=== PATIENT | female | born 1940 | race Caucasian/White ===

== ENCOUNTER → 2017-05-02 | Outpatient (CLI) | payer MEDICARE ==
[~2017-05-02] MED LIST: CALC500T17 PO; ESTE500T6 PO; ESTR1TAB PO; FISH120014 PO; FLUT50SP EACH NARE; GLUC15009 PO; LEVO50TA4 PO; MULT-135 PO; POTA99TA PO; REST0.05 EACH EYE; SPIR50TA PO; TRIME100 PO; VITA20003 PO; ZYRT10TA PO
--- NOTE | 2017-05-02 12:44 | RADRPT ---
EXAM DATE/TIME: 05/02/2017 10:35 [place] COMPARISON: No previous studies available for comparison. INDICATIONS : Dysphagia. FLUORO TIME: 1.1 minutes IMAGE COUNT: 1 CONTRAST: Dose as prescribed by speech pathologist. MEDICAL HISTORY : None. SURGICAL HISTORY : None. ENCOUNTER: Initial ACUITY: 4 - 6 months PAIN SCORE: 0/10 LOCATION: Esophagus. FINDINGS: A modified barium swallow was performed with speech pathology. Patient was given a variety of liquids to swallow. Swallowing mechanism is intact. There is no evidence of significant penetration, aspiration or significant residual during swallowing . For a full detailed report, see report by the speech pathologist. CONCLUSION: Unremarkable swallowing mechanism. Dave Young MD on May 02, 2017 at 12:41 Board Certified Radiologist. This report was verified electronically.
== END ==
LOC: HRAD 09:22
PROVIDERS: ATTEND Family Medicine
DX: R13.10 Dysphagia, unspecified (principal)
CPT/HCPCS: 74230; 92611; G8996; G8997; G8998